=== PATIENT | male | born 1945 | race American Indian/Alaskan Native ===

== ENCOUNTER 2017-11-01 22:37 | Emergency (ER) | payer OTHER, MEDICARE ==
[2017-11-01 23:33] VITALS: BP 143/74
--- NOTE | 2017-11-01 23:48 | Emergency Department Report ---
ED Psych HPI - General Stated Complaint: MH EVAL/COMBATIVE Time Seen by Provider: 11/01/17 23:41 Source: patient, EMS (BROUGTH IN FOR BEING COMBATIVE), RN notes reviewed Limitations: No Limitations - History of Present Illness Initial Comments: 72 YO MALE BROUGHT HER BECAUSE HE IS SAID TO BE COMBATIVE AND HOMICIDAL . PT HAS H/O DM, CVA,APHASIA,SEIZURE. HE HAS BEEN NICE,COOPERATIVE,GENTLE WITHEMS AND THE HOSPITAL STAFF. PT IS APHASIC MD Complaint: other (HAS NO COMPLAINT) - Related Data Home Medications Medication Instructions Recorded Confirmed Last Taken Acetaminophen [Acetaminophen TAB] 650 mg PO BID PRN 07/26/14 10/31/16 Unknown Aspirin [Aspirin BABY CHEW TAB] 81 mg PO DAILY 07/26/14 10/31/16 Unknown Aspirin/Dipyridamole [Aggrenox] 1 cap PO BID 07/26/14 10/31/16 Unknown Cholecalciferol (Vitamin D3) 1,000 unit PO DAILY 07/26/14 10/31/16 Unknown [Vitamin D3] Docusate Sodium [Colace] 100 mg PO BID PRN 07/26/14 10/31/16 Unknown Insulin Aspart Prot/Aspart(Nf) 6 units SUB-Q AC 07/26/14 10/31/16 Unknown [Novolog Mix 70/30] Insulin Detemir [Levemir Flexpen] 43 units SUB-Q HS 07/26/14 10/31/16 Unknown Lisinopril [Zestril] 40 mg PO QDAY 07/26/14 10/31/16 Unknown Metoprolol [Lopressor TAB] 100 mg PO BID 07/26/14 10/31/16 Unknown Omeprazole (Nf) [Prilosec (Nf)] 20 mg PO DAILY 07/26/14 10/31/16 Unknown Simvastatin 40 mg PO QHS 07/26/14 10/31/16 Unknown amLODIPine [Norvasc] 10 mg PO DAILY 07/26/14 10/31/16 Unknown traZODone [Desyrel] 50 mg PO QHS 07/26/14 10/31/16 Unknown DULoxetine [Cymbalta] 30 mg PO QDAY 10/31/16 10/31/16 Unknown QUEtiapine [SEROquel] 12.5 mg PO DAILY 10/31/16 10/31/16 Unknown Allergies Allergy/AdvReac Type Severity Reaction Status Date / Time No Known Allergies Allergy Verified 07/26/14 19:03 ED Review of Systems ROS: Stated complaint: MH EVAL/COMBATIVE Other details as noted in HPI ED Past Medical Hx - Past Medical History Previous Medical History?: Yes Hx CVA: Yes (APHASIA) Hx Diabetes: Yes Hx Psychiatric Treatment: Yes (Depression, dementia) Hx Dementia: Yes Additional medical history: Hyperlipidemia - Surgical History Additional Surgical History: Knee Surgery. Cataract Surgery - Social History Smoking Status: Unknown if ever smoked - Medications Home Medications: Home Medications Medication Instructions Recorded Confirmed Last Taken Type Acetaminophen [Acetaminophen TAB] 650 mg PO BID PRN 07/26/14 10/31/16 Unknown History Aspirin [Aspirin BABY CHEW TAB] 81 mg PO DAILY 07/26/14 10/31/16 Unknown History Aspirin/Dipyridamole [Aggrenox] 1 cap PO BID 07/26/14 10/31/16 Unknown History Cholecalciferol (Vitamin D3) 1,000 unit PO DAILY 07/26/14 10/31/16 Unknown History [Vitamin D3] Docusate Sodium [Colace] 100 mg PO BID PRN 07/26/14 10/31/16 Unknown History Insulin Aspart Prot/Aspart(Nf) 6 units SUB-Q AC 07/26/14 10/31/16 Unknown History [Novolog Mix 70/30] Insulin Detemir [Levemir Flexpen] 43 units SUB-Q HS 07/26/14 10/31/16 Unknown History Lisinopril [Zestril] 40 mg PO QDAY 07/26/14 10/31/16 Unknown History Metoprolol [Lopressor TAB] 100 mg PO BID 07/26/14 10/31/16 Unknown History Omeprazole (Nf) [Prilosec (Nf)] 20 mg PO DAILY 07/26/14 10/31/16 Unknown History Simvastatin 40 mg PO QHS 07/26/14 10/31/16 Unknown History amLODIPine [Norvasc] 10 mg PO DAILY 07/26/14 10/31/16 Unknown History traZODone [Desyrel] 50 mg PO QHS 07/26/14 10/31/16 Unknown History DULoxetine [Cymbalta] 30 mg PO QDAY 10/31/16 10/31/16 Unknown History QUEtiapine [SEROquel] 12.5 mg PO DAILY 10/31/16 10/31/16 Unknown History ED Physical Exam - General Limitations: Language Barrier (APHASIC FROM PRIOR CVA) General appearance: alert, in distress - Head Head exam: Present: atraumatic - Eye Eye exam: Present: normal appearance, EOMI - ENT ENT exam: Present: mucous membranes moist - Neck Neck exam: Present: normal inspection, full ROM - Respiratory Respiratory exam: Present: normal lung sounds bilaterally. Absent: respiratory distress, wheezes, rales - Cardiovascular Cardiovascular Exam: Present: regular rate, normal rhythm. Absent: systolic murmur, diastolic murmur, rubs, gallop - GI/Abdominal GI/Abdominal exam: Present: soft, normal bowel sounds. Absent: distended, tenderness - Rectal Rectal exam: Present: deferred - Extremities Exam Extremities exam: Present: normal inspection, full ROM - Back Exam Back exam: Present: normal inspection, full ROM - Neurological Exam Neurological exam: Present: alert - Psychiatric Psychiatric exam: Present: normal affect, normal mood - Skin Skin exam: Present: warm, dry, intact, normal color. Absent: rash ED Course Vital Signs 11/01/17 23:28 Temperature 98.4 F Pulse Rate 70 Respiratory 18 Rate Blood Pressure 143/74 [Left] O2 Sat by Pulse 98 Oximetry ED Medical Decision Making - Lab Data Result diagrams: 11/01/17 23:58 11/01/17 23:58 Critical care attestation.: If time is entered above; I have spent that time in minutes in the direct care of this critically ill patient, excluding procedure time. ED Disposition Clinical Impression: Hyperglycemia Disposition: DC-01 TO HOME OR SELFCARE Is pt being admited?: No Does the pt Need Aspirin: No Condition: Stable Instructions: Diabetic Hyperglycemia (ED) Additional Instructions: PLESE HAVE HIM FOLLOW UP WITH HIS DOCTOR. WE SEE NO REASON TO KEEP THIS GENTLEMAN. RETURN TO THE ER FOR ANY CONCERNS, OR WORSENING SYMPTOMS Referrals: GILMA CHAN MD [Primary Care Provider] - 3-5 Days Time of Disposition: 02:49
[2017-11-02 00:22] LABS: Basophils # (Auto) 0.1 K/mm3 (0.0-0.1); Basophils % (Auto) 1.1 % (0.0-1.8); Eosinophils # (Auto) 0.4 K/mm3 (0.0-0.4); Eosinophils % (Auto) 4.4 % (0.0-4.3); Hematocrit 42.2 % (35.5-45.6); Hemoglobin 13.4 gm/dl (11.8-15.2); Lymphocytes # (Auto) 1.7 K/mm3 (1.2-5.4); Lymphocytes % (Auto) 16.8 % (13.4-35.0); Mean Corpuscular HGB Conc 32 % (32-34); Mean Corpuscular Hemoglobin 25 pg (28-32); Mean Corpuscular Volume 79 fl (84-94); Monocytes # (Auto) 0.9 K/mm3 (0.0-0.8); Monocytes % (Auto) 8.7 % (0.0-7.3); Platelet Count 284 K/mm3 (140-440); Red Blood Count 5.34 M/mm3 (3.65-5.03); Red Cell Distribution Width 19.9 % (13.2-15.2)
[2017-11-02 00:32] LABS: Bilirubin,Urine NEG (Negative); Blood,Urine SM (Negative); Color,Urine Yellow (Yellow); Nitrite,Urine NEG (Negative); Protein,Urine <15 mg/dL mg/dL (Negative); RBC,Urine < 1.0 /HPF (0.0-6.0); Urobilinogen,Urine < 2.0 mg/dL (<2.0); WBC,Urine < 1.0 /HPF (0.0-6.0)
[2017-11-02 00:42] LABS: BUN/Creatinine Ratio 17; Blood Urea Nitrogen 20 mg/dL (9-20); Calcium 9.8 mg/dL (8.4-10.2); Hemolysis Index 26
[2017-11-02 01:09] LABS: Amphetamine Screen,Urine PRESUMPTIVE NEGATIVE; Benzodiazepines Screen,Urine PRESUMPTIVE NEGATIVE; Cannabinoid Screen,Urine PRESUMPTIVE NEGATIVE; Cocaine Screen,Urine PRESUMPTIVE NEGATIVE; Methadone Screen,Urine PRESUMPTIVE NEGATIVE; Opiate Screen,Urine PRESUMPTIVE NEGATIVE
== END 2017-11-02 05:58 | disposition home or self-care (01) ==
LOC: ED 22:37
DX: R73.9 Hyperglycemia, unspecified (principal); I63.9 Cerebral infarction, unspecified; E11.9 Type 2 diabetes mellitus without complications; F03.90 Unspecified dementia, unspecified severity, without behavioral disturbance, psychotic disturbance, mood disturbance, and anxiety; E78.5 Hyperlipidemia, unspecified; Z79.82 Long term (current) use of aspirin; Z79.4 Long term (current) use of insulin
CPT/HCPCS: 36415; 80048; 80307; 81001; 85025; 99284; G0480; 80320

== ENCOUNTER 2021-05-10 08:25 | Inpatient (IN) | payer OTHER, MEDICARE ==
--- NOTE | 2021-05-10 08:55 | Emergency Department Report ---
HPI - General Chief Complaint: GI Bleed Time Seen by Provider: 05/10/21 08:31 - HPI HPI: This is a 76-year-old -[place] male presents to the emergency department via EMS from his [facility] with a complaint of rectal bleeding with clots that was seen just prior to presentation. Patient has history of hypertension, GERD, previous PE, dementia, high cholesterol, diabetes, CHF, and some CVA with aphasia. Patient is nonverbal and a poor historian. Records have been obtained from his transfer report and previous ER records. ED Past Medical Hx - Past Medical History Hx Hypertension: No Hx CVA: Yes (APHASIA) Hx Heart Attack/AMI: No Hx Congestive Heart Failure: No Hx Diabetes: Yes Hx Deep Vein Thrombosis: No Hx Pulmonary Embolism: No Hx GERD: No Hx Liver Disease: No Hx Renal Disease: No Hx Sickle Cell Disease: No Hx Arthritis: No Hx Headaches / Migraines: No Hx Seizures: No Hx Kidney Stones: No Hx Psychiatric Treatment: Yes (Depression, dementia) Hx Asthma: No Hx COPD: No Hx Tuberculosis: No Hx Dementia: Yes Hx HIV: No Additional medical history: Hyperlipidemia - Surgical History Hx Coronary Stent: No Hx Open Heart Surgery: No Hx Pacemaker: No Hx Internal Defibrillator: No Hx Cholecystectomy: No Hx Appendectomy: No Hx Breast Surgery: No Additional Surgical History: Knee Surgery. Cataract Surgery - Social History Smoking Status: Unknown if ever smoked - Medications Home Medications: Home Medications Medication Instructions Recorded Confirmed Last Taken Type Acetaminophen [Acetaminophen TAB] 650 mg PO BID PRN 07/26/14 10/31/16 Unknown History Aspirin [Aspirin BABY CHEW TAB] 81 mg PO DAILY 07/26/14 10/31/16 Unknown History Aspirin/Dipyridamole [Aggrenox] 1 cap PO BID 07/26/14 10/31/16 Unknown History Cholecalciferol (Vitamin D3) 1,000 unit PO DAILY 07/26/14 10/31/16 Unknown History [Vitamin D3] Docusate Sodium [Colace] 100 mg PO BID PRN 07/26/14 10/31/16 Unknown History Insulin Aspart Prot/Aspart(Nf) 6 units SUB-Q AC 07/26/14 10/31/16 Unknown History [Novolog Mix 70/30] Insulin Detemir [Levemir Flexpen] 43 units SUB-Q HS 07/26/14 10/31/16 Unknown History Metoprolol [Lopressor TAB] 100 mg PO BID 07/26/14 10/31/16 Unknown History Omeprazole (Nf) [Prilosec (Nf)] 20 mg PO DAILY 07/26/14 10/31/16 Unknown History Simvastatin 40 mg PO QHS 07/26/14 10/31/16 Unknown History amLODIPine 10 mg PO DAILY 07/26/14 10/31/16 Unknown History lisinopriL [Zestril] 40 mg PO QDAY 07/26/14 10/31/16 Unknown History traZODone [Desyrel] 50 mg PO QHS 07/26/14 10/31/16 Unknown History DULoxetine [Cymbalta] 30 mg PO QDAY 10/31/16 10/31/16 Unknown History QUEtiapine [SEROquel] 12.5 mg PO DAILY 10/31/16 10/31/16 Unknown History Naproxen [Naprosyn] 500 mg PO BID #14 tablet 11/27/18 Unknown Rx cephALEXin [Keflex] 500 mg PO Q8HR #28 cap 11/27/18 Unknown Rx ED Review of Systems ROS: Stated complaint: RECTAL BLEEDING Other details as noted in HPI Comment: Unobtainable due to pts medical conditions Physical Exam - Physical Exam Physical Exam: GENERAL: The patient is ill-appearing. HENT: Normocephalic. Atraumatic. Patient has moist mucous membranes. EYES: Pupils equal reactive to light bilaterally. NECK: Supple. Trachea is midline. CHEST/LUNGS: Clear to auscultation. There is no respiratory distress noted. HEART/CARDIOVASCULAR: Regular. There is no tachycardia. There is no murmur. ABDOMEN: Abdomen is soft, nontender. Patient has normal bowel sounds. There is no abdominal distention. SKIN: Skin is warm and dry. NEURO: Patient is awake but nonverbal. Follows some commands. Withdraws from painful stimuli. MUSCULOSKELETAL: There is no tenderness or deformity. : There is gross hematochezia. ED Course - Consultations Consultation #1: 05/10/21 11:37 I spoke to the electric welder helper on-call, Dr. Gomez, and they will see the patient as a consult. As the patient just had a CT of the abdomen pelvis with IV contrast, and he is not hemorrhaging, they do not require an RBC tagged scan at this time. ED Medical Decision Making - Lab Data Result diagrams: 05/10/21 11:58 05/10/21 09:03 Lab Results 05/10/21 05/10/21 05/10/21 Range/Units 09:03 09:03 09:03 WBC 20.1 H (4.5-11.0) K/mm3 RBC 6.15 H (3.65-5.03) M/mm3 Hgb 17.4 H (11.8-15.2) gm/dl Hct 51.9 H (35.5-45.6) % MCV 84 (84-94) fl MCH 28 (28-32) pg MCHC 34 (32-34) % RDW 17.9 H (13.2-15.2) % Plt Count 516 H (140-440) K/mm3 Lymph % (Auto) 14.3 (13.4-35.0) % [place] % (Auto) 3.5 (0.0-7.3) % Eos % (Auto) 2.5 (0.0-4.3) % Baso % (Auto) 0.8 (0.0-1.8) % Lymph # (Auto) 2.9 (1.2-5.4) K/mm3 [place] # (Auto) 0.7 (0.0-0.8) K/mm3 Eos # (Auto) 0.5 H (0.0-0.4) K/mm3 Baso # (Auto) 0.2 H (0.0-0.1) K/mm3 Seg Neutrophils % 78.9 H (40.0-70.0) % Seg Neutrophils # 15.9 H (1.8-7.7) K/mm3 PT 19.8 H (12.2-14.9) Sec. INR 1.62 H (0.87-1.13) APTT 40.5 H (24.2-36.6) Sec. Sodium 138 (137-145) mmol/L Potassium 4.6 (3.6-5.0) mmol/L Chloride 102.9 (98-107) mmol/L Carbon Dioxide 25 (22-30) mmol/L Anion Gap 15 mmol/L BUN 62 H (9-20) mg/dL Creatinine 1.4 H (0.8-1.3) mg/dL Estimated GFR 60 ml/min BUN/Creatinine Ratio 44 % Glucose 179 H (75-100) mg/dL Calcium 9.5 (8.4-10.2) mg/dL Total Bilirubin 0.60 (0.1-1.2) mg/dL AST 17 (5-40) units/L ALT 14 (7-56) units/L Alkaline Phosphatase 105 (35-129) units/L Total Protein 7.1 (6.3-8.2) g/dL Albumin 3.1 L (3.9-5) g/dL Albumin/Globulin Ratio 0.8 % 05/10/21 Range/Units 11:58 WBC (4.5-11.0) K/mm3 RBC (3.65-5.03) M/mm3 Hgb 16.7 H (11.8-15.2) gm/dl Hct 53.6 H (35.5-45.6) % MCV (84-94) fl MCH (28-32) pg MCHC (32-34) % RDW (13.2-15.2) % Plt Count (140-440) K/mm3 Lymph % (Auto) (13.4-35.0) % [place] % (Auto) (0.0-7.3) % Eos % (Auto) (0.0-4.3) % Baso % (Auto) (0.0-1.8) % Lymph # (Auto) (1.2-5.4) K/mm3 [place] # (Auto) (0.0-0.8) K/mm3 Eos # (Auto) (0.0-0.4) K/mm3 Baso # (Auto) (0.0-0.1) K/mm3 Seg Neutrophils % (40.0-70.0) % Seg Neutrophils # (1.8-7.7) K/mm3 PT (12.2-14.9) Sec. INR (0.87-1.13) APTT (24.2-36.6) Sec. Sodium (137-145) mmol/L Potassium (3.6-5.0) mmol/L Chloride (98-107) mmol/L Carbon Dioxide (22-30) mmol/L Anion Gap mmol/L BUN (9-20) mg/dL Creatinine (0.8-1.3) mg/dL Estimated GFR ml/min BUN/Creatinine Ratio % Glucose (75-100) mg/dL Calcium (8.4-10.2) mg/dL Total Bilirubin (0.1-1.2) mg/dL AST (5-40) units/L ALT (7-56) units/L Alkaline Phosphatase (35-129) units/L Total Protein (6.3-8.2) g/dL Albumin (3.9-5) g/dL Albumin/Globulin Ratio % - Radiology Data Radiology results: report reviewed, image reviewed interpreted by me: Chest x-ray does not show any acute process. There are no pleural effusions, obvious pneumonia and there is no pneumothorax. No widened mediastinum. Abdominal x-ray shows nonspecific nonobstructive bowel gas. No free air. CT ABDOMEN AND PELVIS WITH CONTRAST HISTORY: Abd pain, rectal bleeding, [id number] 100ml COMPARISON: None. TECHNIQUE: Axial CT images were obtained through the abdomen and pelvis after 100 cc of IV contrast. Sagittal and coronal reformatted images. All CT scans at this location are performed using CT dose reduction for ALARA by means of automated exposure control. FINDINGS: CT ABDOMEN: Lung Bases: Clear. Liver: The liver is normal size and density. A 2 cm hypodensity with rim calcifications is identified in the posterior right hepatic lobe which is of uncertain etiology but a benign etiology is suspected. Biliary: No significant abnormality. Spleen: No significant abnormality. Unenlarged. Pancreas: No significant abnormality. Adrenals: No significant abnormality. Kidneys: No significant abnormality. Lymphatics: No lymphadenopathy. Vasculature: Moderate diffuse calcific plaques are noted throughout the abdominal aorta and iliac ar teries. No aneurysm or high-grade stenosis is detected. Bowel/Peritoneum: There is no evidence for bowel obstruction or focal inflammation. No obvious GI mass. The rectum is grossly unremarkable. Normal appendix. No evidence for free fluid, free air or fluid collection. CT PELVIS: : No significant abnormality. Osseous Structures: Mild to moderate lumbar spondylosis. No fracture or suspicious bony lesion. Additional Findings: None IMPRESSION: No acute process is appreciated. No clear explanation for rectal bleeding on CTA. - Medical Decision Making This patient presented to the emergency department from his [facility] after they saw that he had rectal bleeding starting this morning. On examination the patient does have gross hematochezia. Otherwise the patient does not have any complaints and is nonverbal secondary to a history of CVA with aphasia. The abdomen is soft, nondistended. Patient's labs came back showing a leukocytosis of 20,000. The patient has a hemoglobin of 17.6. There are elevated PT, PTT and INR coags. The patient also has an elevated BUN of about 60. I later found out that the patient is on Eliquis. He also appears to be on Aggrenox. GI was contacted and consulted. Patient was accepted for admission by the hospitalist, Dr. Rodgers. Critical Care Time: No Critical care attestation.: If time is entered above; I have spent that time in minutes in the direct care of this critically ill patient, excluding procedure time. ED Disposition Clinical Impression: Anticoagulated GI bleeding Qualifiers: GI bleed type/associated pathology: unspecified gastrointestinal hemorrhage ty pe Qualified Code(s): K92.2 - Gastrointestinal hemorrhage, unspecified Leukocytosis Qualifiers: Leukocytosis type: unspecified Qualified Code(s): D72.829 - Elevated white blood cell count, unspecified Disposition: DC-09 OP ADMIT IP TO THIS HOSP Is pt being admited?: Yes Condition: Serious Time of Disposition: 14:10
--- NOTE | 2021-05-10 09:25 | XRay Report ---
ABDOMEN SERIES WITH ONE VIEW CHEST INDICATION / CLINICAL INFORMATION: Abd pain. COMPARISON: None available. FINDINGS: TUBES / LINES: None. BOWEL GAS PATTERN: No significant abnormality. FREE AIR / EXTRALUMINAL GAS: None seen. ADDITIONAL FINDINGS: No significant additional findings. LUNGS: Visualized lungs show no significant abnormality. IMPRESSION: 1. No significant abnormality. Signer Name: Dalton Horowitz MD Signed: 05/10/2021 9:20 AM Workstation Name: [id number]
[2021-05-10 09:28] LABS: Basophils # (Auto) 0.2 K/mm3 (0.0-0.1); Basophils % (Auto) 0.8 % (0.0-1.8); Eosinophils # (Auto) 0.5 K/mm3 (0.0-0.4); Eosinophils % (Auto) 2.5 % (0.0-4.3); Hematocrit 51.9 % (35.5-45.6); Hemoglobin 17.4 gm/dl (11.8-15.2); Lymphocytes # (Auto) 2.9 K/mm3 (1.2-5.4); Lymphocytes % (Auto) 14.3 % (13.4-35.0); Mean Corpuscular HGB Conc 34 % (32-34); Mean Corpuscular Volume 84 fl (84-94); Monocytes # (Auto) 0.7 K/mm3 (0.0-0.8); Monocytes % (Auto) 3.5 % (0.0-7.3); Red Blood Count 6.15 M/mm3 (3.65-5.03); Red Cell Distribution Width 17.9 % (13.2-15.2)
[2021-05-10 09:39] LABS: INR 1.62 (0.87-1.13)
[2021-05-10 09:40] LABS: Partial Thromboplastin Time 40.5 Sec. (24.2-36.6)
[2021-05-10 09:42] LABS: Albumin 3.1 g/dL (3.9-5); Calcium 9.5 mg/dL (8.4-10.2)
[2021-05-10 10:10] LABS: Platelet Count 516 K/mm3 (140-440)
--- NOTE | 2021-05-10 11:08 | Cat Scan Report ---
CT ABDOMEN AND PELVIS WITH CONTRAST HISTORY: Abd pain, rectal bleeding, [id number] 100ml COMPARISON: None. TECHNIQUE: Axial CT images were obtained through the abdomen and pelvis after 100 cc of IV contrast. Sagittal and coronal reformatted images. All CT scans at this location are performed using CT dose re duction for ALARA by means of automated exposure control. FINDINGS: CT ABDOMEN: Lung Bases: Clear. Liver: The liver is normal size and density. A 2 cm hypodensity with rim calcifications is identified in the posterior right hepatic lobe which is of uncertain etiology but a benign etiology is suspecte d. Biliary: No significant abnormality. Spleen: No significant abnormality. Unenlarged. Pancreas: No significant abnormality. Adrenals: No significant abnormality. Kidneys: No significant abnormality. Lymphatics: No lymphadenopathy. Vasculature: Moderate diffuse calcific plaques are noted throughout the abdominal aorta and iliac art eries. No aneurysm or high-grade stenosis is detected. Bowel/Peritoneum: There is no evidence for bowel obstruction or focal inflammation. No obvious GI mas s. The rectum is grossly unremarkable. Normal appendix. No evidence for free fluid, free air or fluid collection. CT PELVIS: : No significant abnormality. Osseous Structures: Mild to moderate lumbar spondylosis. No fracture or suspicious bony lesion. Additional Findings: None IMPRESSION: No acute process is appreciated. No clear explanation for rectal bleeding on CTA. Signer Name: Howard Rashid Jr, MD Signed: 05/10/2021 11:04 AM Workstation Name: [id number]
--- NOTE | 2021-05-10 11:51 | History and Physical Report ---
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 Patient has diminished cognition and is unable to provide detailed history. Patient history taken from EMS staff, ED staff, as well as senior care facility staff. As per staff the patient was found to have rectal bleeding today. EMS notified and upon arrival the patient was found to be in distress and subsequently transported to [facility] for further care and evaluation of the aforementioned symptoms. Patient found to have heme positive stool with clinical findings consistent with lower GI bleed suspected secondary to therapeutic anticoagulation with concomitant antiplatelet therapy. Patient admitted to telemetry and initiated on GI bleed protocol. Patient treated with discontinuation of dual antiplatelet therapy as well as therapeutic anticoagulation. No transfusion indicated at this time. No reports of fever, chills, chest pain, palpitation, productive cough, skin rash, recent ill contacts, known exposure to COVID-19, unilateral leg swelling, calf pain, individual/family history of bleeding or blood clotting disorders. No pr ior admission for review. All medication listed at time of admission has been reconciled. Advanced care planning conducted in ED. Past History Past Medical History: diabetes, GERD, hypertension, hyperlipidemia, other (See HPI) Past Surgical History: cataract removal, total knee replacement Social history: . denies: smoking, alcohol abuse, prescription drug abuse Family history: diabetes, hypertension Medications and Allergies Allergies Allergy/AdvReac Type Severity Reaction Status Date / Time No Known Allergies Allergy Verified 07/26/14 19:03 Home Medications Medication Instructions Recorded Confirmed Last Taken Type Acetaminophen [Acetaminophen TAB] 650 mg PO BID PRN 07/26/14 10/31/16 Unknown History Aspirin [Aspirin BABY CHEW TAB] 81 mg PO DAILY 07/26/14 10/31/16 Unknown History Aspirin/Dipyridamole [Aggrenox] 1 cap PO BID 07/26/14 10/31/16 Unknown History Cholecalciferol (Vitamin D3) 1,000 unit PO DAILY 07/26/14 10/31/16 Unknown History [Vitamin D3] Docusate Sodium [Colace] 100 mg PO BID PRN 07/26/14 10/31/16 Unknown History Insulin Aspart Prot/Aspart(Nf) 6 units SUB-Q AC 07/26/14 10/31/16 Unknown History [Novolog Mix 70/30] Insulin Detemir [Levemir Flexpen] 43 units SUB-Q HS 07/26/14 10/31/16 Unknown History Metoprolol [Lopressor TAB] 100 mg PO BID 07/26/14 10/31/16 Unknown History Omeprazole (Nf) [Prilosec (Nf)] 20 mg PO DAILY 07/26/14 10/31/16 Unknown History Simvastatin 40 mg PO QHS 07/26/14 10/31/16 Unknown History amLODIPine 10 mg PO DAILY 07/26/14 10/31/16 Unknown History lisinopriL [Zestril] 40 mg PO QDAY 07/26/14 10/31/16 Unknown History traZODone [Desyrel] 50 mg PO QHS 07/26/14 10/31/16 Unknown History DULoxetine [Cymbalta] 30 mg PO QDAY 10/31/16 10/31/16 Unknown History QUEtiapine [SEROquel] 12.5 mg PO DAILY 10/31/16 10/31/16 Unknown History Naproxen [Naprosyn] 500 mg PO BID #14 tablet 11/27/18 Unknown Rx cephALEXin [Keflex] 500 mg PO Q8HR #28 cap 11/27/18 Unknown Rx Review of Systems ROS unobtainable: due to mental status Exam - Constitutional Vitals: Temp Pulse Resp BP Pulse Ox 98.3 F 67 14 91/57 91 05/10/21 08:38 05/10/21 10:00 05/10/21 10:00 05/10/21 10:00 05/10/21 10:00 General appearance: Present: mild distress - EENT Eyes: Present: PERRL ENT: hearing intact, clear oral mucosa - Neck Neck: Present: supple, normal ROM - Respiratory Respiratory effort: normal Respiratory: bilateral: CTA - Cardiovascular Heart Sounds: Present: S1 & S2. Absent: rub, click - Extremities Extremities: pulses symmetrical, No edema Peripheral Pulses: within normal limits - Abdominal General gastrointestinal: Present: soft, non-tender, non-distended, normal bowel sounds Male genitourinary: Present: normal - Rectal Rectal Exam: other (Hemoccult positive, no stool in the rectal vault) - Integumentary Integumentary: Present: clear, warm, dry - Musculoskeletal Musculoskeletal: gait normal, strength equal bilaterally - Psychiatric Psychiatric: appropriate mood/affect, intact judgment & insight - Neurologic Neurologic: CNII-XII intact, moves all extremities Results - Labs CBC & Chem 7: 05/10/21 11:58 05/10/21 09:03 Labs: Abnormal lab results 05/10/21 05/10/21 05/10/21 Range/Units 09:03 09:03 09:03 WBC 20.1 H (4.5-11.0) K/mm3 RBC 6.15 H (3.65-5.03) M/mm3 Hgb 17.4 H (11.8-15.2) gm/dl Hct 51.9 H (35.5-45.6) % RDW 17.9 H (13.2-15.2) % Plt Count 516 H (140-440) K/mm3 Eos # (Auto) 0.5 H (0.0-0.4) K/mm3 Baso # (Auto) 0.2 H (0.0-0.1) K/mm3 Seg Neutrophils % 78.9 H (40.0-70.0) % Seg Neutrophils # 15.9 H (1.8-7.7) K/mm3 PT 19.8 H (12.2-14.9) Sec. INR 1.62 H (0.87-1.13) APTT 40.5 H (24.2-36.6) Sec. BUN 62 H (9-20) mg/dL Creatinine 1.4 H (0.8-1.3) mg/dL Glucose 179 H (75-100) mg/dL Albumin 3.1 L (3.9-5) g/dL Assessment and Plan - Patient Problems (1) GI bleeding Current Visit: Yes Status: Acute Qualifiers: GI bleed type/associated pathology: unspecified gastrointestinal hemorrhage type Qualified Code(s): K92.2 - Gastrointestinal hemorrhage, unspecified Plan to address problem: GIB protocol: Admit to telemetry, PPI therapy, hold therapeutic anticoagulation, hold antiplatelet therapy, no transfusion at this time. (2) Acute kidney injury (MELISSA) with acute tubular necrosis (ATN) Current Visit: Yes Status: Acute Plan to address problem: IV fluid resuscitation therapy as clinically indicated, encourage free water intake, supportive care. Repeat BMP in a.m. (3) History of pulmonary embolism Current Visit: Yes Status: Acute Plan to address problem: Hold therapeutic anticoagulation now due to GI bleed (4) History of CVA (cerebrovascular accident) Current Visit: Yes Status: Acute Plan to address problem: Hold antiplatelet therapy at this time due to GI bleed. (5) Hypertension Current Visit: Yes Status: Acute Qualifiers: Hypertension type: primary hypertension Qualified Code(s): I10 - Essential (primary) hypertension Plan to address problem: Monitor blood pressure every shift, continue medical management (6) GERD (gastroesophageal reflux disease) Current Visit: Yes Status: Acute Qualifiers: Esophagitis presence: without esophagitis Qualified Code(s): K21.9 - Gastro-esophageal reflux disease without esophagitis Plan to address problem: PPI therapy, supportive care (7) DVT prophylaxis Current Visit: Yes Status: Acute Plan to address problem: SCDs bilateral lower extremities while in bed, hold anticoagulation due to active GI bleed (8) Advance care planning Current Visit: Yes Status: Acute Plan to address problem: Disease education conducted, care plan discussed, diagnosis discussed, prognosis discussed, +30 minutes. Patient is full code.
[2021-05-10] MEDS ORDERED: ACETAMINOPHEN 325 MG TAB PO PRN ×2 (12:07→13:00)
[2021-05-10] MEDS ORDERED: SODIUM CHLORIDE 0.9% 1000 ML 1,000 ML ONE (12:14)
[2021-05-10 12:26] LABS: Hematocrit 53.6 % (35.5-45.6); Hemoglobin 16.7 gm/dl (11.8-15.2)
[2021-05-10] MEDS ORDERED: SODIUM CHLORIDE 0.9% 1000 ML 1,000 ML IV ONE (12:42)
[2021-05-10] MEDS ORDERED: MORPHINE 4 MG/1 ML INJ IV PRN (13:00)
[2021-05-10] MEDS ORDERED: ONDANSETRON 4 MG/2 ML INJ IV PRN (13:00)
[2021-05-10] MEDS ORDERED: oxyCODONE /ACETAMINOPHEN 5-325MG TAB PO PRN (13:00)
[2021-05-10] MEDS ORDERED: ALBUTEROL 2.5 MG/3 ML NEBU IH PRN (13:00)
[2021-05-10] MEDS ORDERED: DOCUSATE SODIUM 100 MG CAP PO PRN (13:00)
[2021-05-10] MEDS: METOPROLOL TARTRATE 100 MG TAB PO SCH ×2 (13:45→23:08)
[2021-05-10] MEDS: NAPROXEN 500 MG TAB PO SCH ×2 (13:47→23:21)
[2021-05-10] MEDS: cefTRIAXone/NS 1 GM/50 ML 1 GM/50 ML BAG IV SCH (14:04)
[2021-05-10] MEDS: PANTOPRAZOLE 40 MG INJ IV SCH ×2 (14:07→23:22)
[2021-05-10] MEDS ORDERED: SODIUM CHLORIDE 0.9% 500 ML 500 ML IV NR (16:42)
[2021-05-10] MEDS ORDERED: METOPROLOL TARTRATE 25 MG TAB PO SCH (22:00)
[2021-05-10] MEDS ORDERED: NON-FORMULARY EACH (Simvastatin [Simvastatin] 20 MG Tablet) PO SCH (22:00)
[2021-05-10] MEDS: traZODone 50 MG TAB PO SCH (23:21)
[2021-05-10] MEDS: PRAVASTATIN 80 MG TAB PO SCH (23:21)
[2021-05-11 06:33] LABS: Basophils # (Auto) 0.2 K/mm3 (0.0-0.1); Basophils % (Auto) 1.1 % (0.0-1.8); Eosinophils # (Auto) 0.5 K/mm3 (0.0-0.4); Eosinophils % (Auto) 2.7 % (0.0-4.3); Hematocrit 44.1 % (35.5-45.6); Hemoglobin 13.7 gm/dl (11.8-15.2); Lymphocytes # (Auto) 2.8 K/mm3 (1.2-5.4); Lymphocytes % (Auto) 15.5 % (13.4-35.0); Mean Corpuscular HGB Conc 31 % (32-34); Mean Corpuscular Volume 86 fl (84-94); Monocytes # (Auto) 0.8 K/mm3 (0.0-0.8); Monocytes % (Auto) 4.4 % (0.0-7.3); Platelet Count 388 K/mm3 (140-440); Red Blood Count 5.16 M/mm3 (3.65-5.03); Red Cell Distribution Width 17.5 % (13.2-15.2)
[2021-05-11 06:49] LABS: BUN/Creatinine Ratio 45; Blood Urea Nitrogen 59 mg/dL (9-20); Calcium 8.3 mg/dL (8.4-10.2); Hemolysis Index 104
--- NOTE | 2021-05-11 09:35 | Progress Note ---
Assessment and Plan Assessment and plan: GI bleed Acute kidney injury/ATN History of pulmonary embolism History of CVA Hypertension GERD 05/11/2021. Continue Protonix 40 mg IV twice daily. Discontinue naproxen. Await GI consultation. Continue to monitor serial H&H which currently stable. Continue IV fluid hydration. Creatinine has improved. History Interval history: No new issues overnight. Hospitalist Physical - Constitutional Vitals: Temp Pulse Resp BP Pulse Ox 97.2 F L 48 L 20 81/36 92 05/11/21 08:41 05/11/21 08:41 05/11/21 08:41 05/11/21 08:41 05/11/21 09:29 General appearance: Present: mild distress - EENT Eyes: Present: PERRL, EOM intact ENT: hearing intact, clear oral mucosa, dentition normal - Neck Neck: Present: supple, normal ROM - Respiratory Respiratory effort: normal Respiratory: bilateral: CTA - Cardiovascular Rhythm: regular Heart Sounds: Present: S1 & S2. Absent: gallop, rub - Extremities Extremities: no ischemia, No edema, Full ROM - Abdominal General gastrointestinal: soft, non-tender, non-distended, normal bowel sounds - Integumentary Integumentary: Present: clear, warm, dry - Neurologic Neurologic: CNII-XII intact, moves all extremities Results - Labs CBC & Chem 7: 05/11/21 05:02 05/11/21 05:02 Labs: Laboratory Last Values WBC 18.0 K/mm3 (4.5-11.0) H 05/11/21 05:02 RBC 5.16 M/mm3 (3.65-5.03) H 05/11/21 05:02 Hgb 13.7 gm/dl (11.8-15.2) D 05/11/21 05:02 Hct 44.1 % (35.5-45.6) D 05/11/21 05:02 MCV 86 fl (84-94) 05/11/21 05:02 MCH 27 pg (28-32) L 05/11/21 05:02 MCHC 31 % (32-34) L 05/11/21 05:02 RDW 17.5 % (13.2-15.2) H 05/11/21 05:02 Plt Count 388 K/mm3 (140-440) 05/11/21 05:02 Lymph % (Auto) 15.5 % (13.4-35.0) 05/11/21 05:02 [place] % (Auto) 4.4 % (0.0-7.3) 05/11/21 05:02 Eos % (Auto) 2.7 % (0.0-4.3) 05/11/21 05:02 Baso % (Auto) 1.1 % (0.0-1.8) 05/11/21 05:02 Lymph # (Auto) 2.8 K/mm3 (1.2-5.4) 05/11/21 05:02 [place] # (Auto) 0.8 K/mm3 (0.0-0.8) 05/11/21 05:02 Eos # (Auto) 0.5 K/mm3 (0.0-0.4) H 05/11/21 05:02 Baso # (Auto) 0.2 K/mm3 (0.0-0.1) H 05/11/21 05:02 Seg Neutrophils % 76.3 % (40.0-70.0) H 05/11/21 05:02 Seg Neutrophils # 13.7 K/mm3 (1.8-7.7) H 05/11/21 05:02 PT 19.8 Sec. (12.2-14.9) H 05/10/21 09:03 INR 1.62 (0.87-1.13) H 05/10/21 09:03 APTT 40.5 Sec. (24.2-36.6) H 05/10/21 09:03 Sodium 136 mmol/L (137-145) L 05/11/21 05:02 Potassium 4.9 mmol/L (3.6-5.0) 05/11/21 05:02 Chloride 101.9 mmol/L (98-107) 05/11/21 05:02 Carbon Dioxide 22 mmol/L (22-30) 05/11/21 05:02 Anion Gap 17 mmol/L 05/11/21 05:02 BUN 59 mg/dL (9-20) H 05/11/21 05:02 Creatinine 1.3 mg/dL (0.8-1.3) 05/11/21 05:02 Estimated GFR > 60 ml/min 05/11/21 05:02 BUN/Creatinine Ratio 45 % 05/11/21 05:02 Glucose 130 mg/dL (75-100) H 05/11/21 05:02 Calcium 8.3 mg/dL (8.4-10.2) L 05/11/21 05:02 Total Bilirubin 0.60 mg/dL (0.1-1.2) 05/10/21 09:03 AST 17 units/L (5-40) 05/10/21 09:03 ALT 14 units/L (7-56) 05/10/21 09:03 Alkaline Phosphatase 105 units/L (35-129) 05/10/21 09:03 Total Protein 7.1 g/dL (6.3-8.2) 05/10/21 09:03 Albumin 3.1 g/dL (3.9-5) L 05/10/21 09:03 Albumin/Globulin Ratio 0.8 % 05/10/21 09:03 Lewis/IV: Voiding Method Condom Catheter Active Medications - Current Medications Current Medications: Generic Name Dose Route Start Last Admin Trade Name Freq PRN Reason Stop Dose Admin Acetaminophen 650 mg 05/10/21 13:00 Acetaminophen 325 Mg Tab PO Q4H PRN Pain MILD(1-3)/Fever >100.5/VASQUEZ Albuterol 2.5 mg 05/10/21 13:00 Albuterol 2.5 Mg/3 Ml Nebu IH Q4HRT PRN Shortness Of Breath Amlodipine Besylate 10 mg 05/11/21 10:00 Amlodipine 10 Mg Tab PO DAILY [facility] Docusate Sodium 100 mg 05/10/21 13:00 Docusate Sodium 100 Mg Cap PO BID PRN Constipation Duloxetine HCl 30 mg 05/11/21 10:00 Duloxetine 30 Mg Cap PO QDAY [facility] Ceftriaxone Sodium 1 gm in 50 mls @ 100 mls/hr 05/10/21 13:00 05/10/21 14:04 Rocephin/Ns 1 Gm/50 Ml IV 100 mls/hr Q24HR ALMAZ Administration Protocol Lisinopril 40 mg 05/11/21 13:00 Lisinopril 40 Mg Tab PO QDAY [facility] Metoprolol Tartrate 100 mg 05/10/21 13:00 05/10/21 23:08 Metoprolol Tartrate 100 Mg Tab PO Not Given BID [facility] Morphine Sulfate 1 mg 05/10/21 13:00 Morphine 4 Mg/1 Ml Inj IV Q8H PRN Pain , Severe (7-10) Naproxen 500 mg 05/10/21 13:00 05/10/21 23:21 Naproxen 500 Mg Tab PO 500 mg BID ALMAZ Administration Ondansetron HCl 4 mg 05/10/21 13:00 Ondansetron 4 Mg/2 Ml Inj IV Q8H PRN Nausea And Vomiting Oxycodone/Acetaminophen 1 tab 05/10/21 13:00 Oxycodone /Acetaminophen 5-325mg Tab PO Q6H PRN Pain, Moderate (4-6) Pantoprazole Sodium 40 mg 05/10/21 14:00 05/10/21 23:22 Pantoprazole 40 Mg Inj IV 40 mg BID ALMAZ Administration Pravastatin Sodium 80 mg 05/10/21 22:00 05/10/21 23:21 Pravastatin 80 Mg Tab PO 80 mg QHS ALMAZ Administration Quetiapine Fumarate 12.5 mg 05/11/21 13:00 Quetiapine 25 Mg Tab PO DAILY ALMAZ Sodium Chloride 10 ml 05/10/21 13:00 05/10/21 23:22 Sodium Chloride 0.9% 10 Ml Flush Syringe IV 10 ml BID ALMAZ Administration Sodium Chloride 10 ml 05/10/21 13:00 Sodium Chloride 0.9% 10 Ml Flush Syringe IV PRN PRN LINE FLUSH Trazodone HCl 50 mg 05/10/21 22:00 05/10/21 23:21 Trazodone 50 Mg Tab PO 50 mg QHS ALMAZ Administration
[2021-05-11] MEDS: cefTRIAXone/NS 1 GM/50 ML 1 GM/50 ML BAG IV SCH (13:36)
[2021-05-11] MEDS: DULoxetine 30 MG CAP PO SCH (13:42)
[2021-05-11] MEDS: METOPROLOL TARTRATE 100 MG TAB PO SCH ×2 (13:42→22:27)
[2021-05-11] MEDS: amLODIPine 10 MG TAB PO SCH (13:43)
[2021-05-11] MEDS: PANTOPRAZOLE 40 MG INJ IV SCH ×2 (13:44→22:28)
[2021-05-11] MEDS: QUEtiapine 25 MG TAB PO SCH (13:56)
[2021-05-11] MEDS: LISINOPRIL 40 MG TAB PO SCH ×2 (13:56→13:57)
[2021-05-11] MEDS: traZODone 50 MG TAB PO SCH (22:27)
[2021-05-11] MEDS: PRAVASTATIN 80 MG TAB PO SCH (22:27)
[2021-05-11 23:20] LABS: Bacteria,Urine 1+ /HPF (Negative); Bilirubin,Urine NEG (Negative); Blood,Urine SM (Negative); Color,Urine Yellow (Yellow); Hyaline Casts,Urine 1 /LPF; Protein,Urine <15 mg/dL mg/dL (Negative); Urobilinogen,Urine < 2.0 mg/dL (<2.0)
[2021-05-12 05:16] LABS: Hemoglobin 13.6 gm/dl (11.8-15.2); Mean Corpuscular Volume 85 fl (84-94); Red Blood Count 4.97 M/mm3 (3.65-5.03)
[2021-05-12 05:17] LABS: Basophils # (Auto) 0.1 K/mm3 (0.0-0.1); Basophils % (Auto) 0.7 % (0.0-1.8); Eosinophils # (Auto) 0.4 K/mm3 (0.0-0.4); Eosinophils % (Auto) 3.1 % (0.0-4.3); Lymphocytes # (Auto) 1.7 K/mm3 (1.2-5.4); Lymphocytes % (Auto) 12.2 % (13.4-35.0); Mean Corpuscular HGB Conc 33 % (32-34); Monocytes # (Auto) 0.7 K/mm3 (0.0-0.8); Monocytes % (Auto) 4.7 % (0.0-7.3); Platelet Count 406 K/mm3 (140-440); Red Cell Distribution Width 17.4 % (13.2-15.2)
[2021-05-12 05:19] LABS: BUN/Creatinine Ratio 40; Blood Urea Nitrogen 48 mg/dL (9-20); Calcium 8.6 mg/dL (8.4-10.2); Hemolysis Index 26
--- NOTE | 2021-05-12 07:50 | Discharge Summary ---
Providers - Providers Date of Admission: 05/10/21 12:01 Date of discharge: 05/12/21 Attending physician: JOHANN CALHOUN 05/11/21 07:28 Consult to Physician [CONS] Routine Comment: Consulting Provider: KASHMIR PARIKH Physician Instructions: Reason For Exam: GIB 05/11/21 19:55 Consult to Wound/ET Nurse [CONS] Urgent Reason For Exam: wound eval Primary care physician: BAKER PASTRY Hospitalization Reason for admission: anemia, rectal bleeding Condition: Serious Hospital course: 76 YO Male Usp Facility Resident at 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 Patient has diminished cognition and was unable to provide detailed history. Patient history taken from EMS staff, ED staff, as well as detention facility staff. As per staff the patient was found to have rectal bleeding on the day of admission. EMS notified and upon arrival the patient was found to be in distress and subsequently transported to [facility] for further care and evaluation of the aforementioned symptoms. Patient found to have heme positive stool with clinical findings consistent with lower GI bleed suspected secondary to therapeutic anticoagulation with concomitant antiplatelet therapy. Patient admitted to telemetry and initiated on GI bleed protocol. Patient treated with discontinuation of dual antiplatelet therapy as well as therapeutic anticoagulation. No transfusion indicated at this time. Patient with admission diagnosis of GI bleed. Patient was also admitted with acute kidney injury secondary to vasomotor nephropathy and possibly ATN from sepsis. The patient was noted also to have leukocytosis on admission but no urinalysis was obtained until day 2 of the hospital stay. Urinalysis revealed UTI with 55 WBCs. Therefore, patient also had a diagnosis of sepsis and UTI present on admission. Patient meets criteria for sepsis given the altered mentation, leukocytosis and diagnosis of UTI. Dr. Rodgers and myself had a discussion with GI who reported that patient should be monitored and if no significant change in H&H can be discharged. GI reported having no plans to perform endoscopy given patient's overall poor clinical status with vascular dementia, CVA complicated with aphasia, adult failure to thrive and history of hospice. GI also recommended discontinuing anticoagulation which was completed. I also discussed the case with the who was in agreement with discharging the patient back to nursing facility under hospice if H&H remained stable. Patient had no further active bleeding H&H remained stable. Anticoagulation will be discontinued and patient will be transferred back to nursing facility. Patient was treated with IV antibiotics of Rocephin and will be continued on p.o. antibiotics at discharge. Dedicated discharge time 35 minutes. 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, Cerebral Atherosclerosis, HTN, GERD, DM, HLD, CHF, Vascular Dementia, Depression, PE Core Measure Documentation - Palliative Care Palliative Care/ Comfort Measures: Not Applicable - Core Measures Any of the following diagnoses?: none Exam - Constitutional Vitals: Temp Pulse Resp BP Pulse Ox 97.5 F L 56 L 12 115/55 94 05/12/21 07:34 05/12/21 07:34 05/12/21 07:34 05/12/21 07:34 05/12/21 07:34 General appearance: Present: no acute distress, well-nourished - EENT Eyes: Present: PERRL ENT: hearing intact, clear oral mucosa - Neck Neck: Present: supple, normal ROM - Respiratory Respiratory effort: normal Respiratory: bilateral: CTA - Cardiovascular Heart Sounds: Present: S1 & S2. Absent: rub, click - Extremities Extremities: pulses symmetrical, No edema Peripheral Pulses: within normal limits - Abdominal General gastrointestinal: Present: soft, non-tender, non-distended, normal bowel sounds Male genitourinary: Present: normal - Integumentary Integumentary: Present: clear, warm, dry - Musculoskeletal Musculoskeletal: gait normal, strength equal bilaterally - Psychiatric Psychiatric: appropriate mood/affect, intact judgment & insight - Neurologic Neurologic: moves all extremities, other (Confused) Plan Activity: advance as tolerated Weight Bearing Status: Weight Bear as Tolerated Diet: regular Follow up with: PRIMARY CARE,MD [Primary Care Provider] - 3-5 Days Forms: Accompanied Note
[2021-05-12] MEDS ORDERED: PANTOPRAZOLE 40 MG TAB PO SCH (09:00)
[2021-05-12] MEDS ORDERED: levoFLOXacin 500 MG TAB PO SCH (10:00)
[2021-05-12] MEDS: LISINOPRIL 40 MG TAB PO SCH (10:12)
[2021-05-12] MEDS: amLODIPine 10 MG TAB PO SCH (10:12)
[2021-05-12] MEDS: METOPROLOL TARTRATE 100 MG TAB PO SCH (10:12)
[2021-05-12] MEDS: DULoxetine 30 MG CAP PO SCH (10:12)
[2021-05-12] MEDS: QUEtiapine 25 MG TAB PO SCH (10:13)
--- NOTE | 2021-05-12 12:13 | Consultation ---
History of Present Illness - Reason for Consult Consult date: 05/12/21 GI bleed Requesting physician: JOHANN CALHOUN - History of Present Illness Mr. Andino is a 76-year-old [facility] resident on whom I am consulted for GI bleed. He is on DAPT for heart disease, and was in hospice for cardiac reasons per reported discussion by hospitalists with his . He was brought to the emergency room because of bright red blood per rectum. Here, he has had no further bleeding. His hemoglobin went from 16-13. No reported GI distress. Medications reviewed. Past History Past Medical History: diabetes, GERD, hypertension, hyperlipidemia, other (See HPI) Past Surgical History: cataract removal, total knee replacement Social history: . denies: smoking, alcohol abuse, prescription drug abuse Family history: diabetes, hypertension Medications and Allergies Allergies Allergy/AdvReac Type Severity Reaction Status Date / Time No Known Allergies Allergy Verified 07/26/14 19:03 Home Medications Medication Instructions Recorded Confirmed Last Taken Type Acetaminophen [Acetaminophen TAB] 650 mg PO BID PRN 07/26/14 10/31/16 Unknown History Cholecalciferol (Vitamin D3) 1,000 unit PO DAILY 07/26/14 10/31/16 Unknown History [Vitamin D3] Docusate Sodium [Colace CAP] 100 mg PO BID PRN 07/26/14 10/31/16 Unknown History Insulin Aspart Prot/Aspart(Nf) 6 units SUB-Q AC 07/26/14 10/31/16 Unknown History [NovoLOG Mix 70/30 VIAL] Insulin Detemir [Levemir Flexpen] 43 units SUB-Q HS 07/26/14 10/31/16 Unknown History Metoprolol [Lopressor TAB] 100 mg PO BID 07/26/14 10/31/16 Unknown History Simvastatin 40 mg PO QHS 07/26/14 10/31/16 Unknown History amLODIPine 10 mg PO DAILY 07/26/14 10/31/16 Unknown History lisinopriL [Zestril TAB] 40 mg PO QDAY 07/26/14 10/31/16 Unknown History traZODone [Desyrel] 50 mg PO QHS 07/26/14 10/31/16 Unknown History DULoxetine [Cymbalta] 30 mg PO QDAY 10/31/16 10/31/16 Unknown History QUEtiapine [SEROquel] 12.5 mg PO DAILY 10/31/16 10/31/16 Unknown History Metoprolol [Lopressor TAB] 100 mg PO BID tablet 05/12/21 Unknown Rx Pantoprazole [Protonix TAB] 40 mg PO BIDAC #60 tablet 05/12/21 Unknown Rx levoFLOXacin [Levaquin TAB] 500 mg PO Q24HR #7 tablet 05/12/21 Unknown Rx Active Meds: Active Medications Acetaminophen (Acetaminophen 325 Mg Tab) 650 mg PO Q4H PRN PRN Reason: Pain MILD(1-3)/Fever >100.5/VASQUEZ Albuterol (Albuterol 2.5 Mg/3 Ml Nebu) 2.5 mg IH Q4HRT PRN PRN Reason: Shortness Of Breath Amlodipine Besylate (Amlodipine 10 Mg Tab) 10 mg PO DAILY [facility] Last Admin: 05/12/21 10:12 Dose: 10 mg Documented by: Docusate Sodium (Docusate Sodium 100 Mg Cap) 100 mg PO BID PRN PRN Reason: Constipation Duloxetine HCl (Duloxetine 30 Mg Cap) 30 mg PO QDAY [facility] Last Admin: 05/12/21 10:12 Dose: 30 mg Documented by: Levofloxacin (Levofloxacin 500 Mg Tab) 500 mg PO Q24HR [facility]; Protocol Stop: 05/18/21 10:01 Last Admin: 05/12/21 10:13 Dose: 500 mg Documented by: Lisinopril (Lisinopril 40 Mg Tab) 40 mg PO QDAY [facility] Last Admin: 05/12/21 10:12 Dose: 40 mg Documented by: Metoprolol Tartrate (Metoprolol Tartrate 100 Mg Tab) 100 mg PO BID [facility] Last Admin: 05/12/21 10:12 Dose: 100 mg Documented by: Morphine Sulfate (Morphine 4 Mg/1 Ml Inj) 1 mg IV Q8H PRN PRN Reason: Pain , Severe (7-10) Ondansetron HCl (Ondansetron 4 Mg/2 Ml Inj) 4 mg IV Q8H PRN PRN Reason: Nausea And Vomiting Oxycodone/Acetaminophen (Oxycodone /Acetaminophen 5-325mg Tab) 1 tab PO Q6H PRN PRN Reason: Pain, Moderate (4-6) Pantoprazole S[facility] Mg [facility] Admin: 05/12/21 10:15 Dose: 40 mg Documented by: Pravastatin Sodium (Pravastatin 80 Mg Tab) 80 mg PO QHS [facility] Last Admin: 05/11/21 22:27 Dose: Not Given Documented by: Quetiapine Fumarate (Quetiapine 25 Mg Tab) 12.5 mg PO DAILY [facility] Last Admin: 05/12/21 10:13 Dose: 12.5 mg Documented by: Sodium Chloride (Sodium Chloride 0.9% 10 Ml Flush Syringe) 10 ml IV BID [facility] Last Admin: 05/12/21 10:13 Dose: 10 ml Documented by: Sodium Chloride (Sodium Chloride 0.9% 10 Ml Flush Syringe) 10 ml IV PRN PRN PRN Reason: LINE FLUSH Trazodone HCl (Trazodone 50 Mg Tab) 50 mg PO QHS [facility] Last Admin: 05/11/21 22:27 Dose: Not Given Documented by: Review of Systems ROS unobtainable: due to mental status Exam - Constitutional Vitals: Temp Pulse Resp BP Pulse Ox 97.5 F L 58 L 18 115/55 94 05/12/21 07:34 05/12/21 07:46 05/12/21 07:46 05/12/21 07:34 05/12/21 07:34 General appearance: Present: no acute distress, other (Not able to give coherent responses) - EENT Eyes: Present: PERRL, EOM intact ENT: hearing intact - Respiratory Respiratory effort: normal Respiratory: bilateral: CTA (anteriorly) - Cardiovascular Rhythm: regular Heart Sounds: Present: S1 & S2 - Extremities Extremities: No edema - Abdominal General gastrointestinal: Present: soft, non-tender - Rectal Rectal Exam: normal rectal tone, other (No masses, no oziel blood on rectal) Results - Labs CBC & Chem 7: 05/12/21 04:01 05/12/21 04:01 Labs: Abnormal lab results 05/11/21 05/11/21 05/12/21 Range/Units 16:06 22:53 04:01 WBC 13.9 H (4.5-11.0) K/mm3 RDW 17.4 H (13.2-15.2) % Lymph % (Auto) 12.2 L (13.4-35.0) % Seg Neutrophils % 79.3 H (40.0-70.0) % Seg Neutrophils # 11.0 H (1.8-7.7) K/mm3 Sodium (137-145) mmol/L BUN (9-20) mg/dL Glucose (75-100) mg/dL POC Glucose 218 H (70-105) mg/dL Urine WBC (Auto) 55.0 H (0.0-6.0) /HPF 05/12/21 Range/Units 04:01 WBC (4.5-11.0) K/mm3 RDW (13.2-15.2) % Lymph % (Auto) (13.4-35.0) % Seg Neutrophils % (40.0-70.0) % Seg Neutrophils # (1.8-7.7) K/mm3 Sodium 134 L (137-145) mmol/L BUN 48 H (9-20) mg/dL Glucose 202 H (75-100) mg/dL POC Glucose (70-105) mg/dL Urine WBC (Auto) (0.0-6.0) /HPF Assessment and Plan 1. Rectal bleed -resolved. Hemoglobin stable. Per discussion by hospitalist with patient's , aggressive evaluation not desired. As patient has stopped bleeding, we will not pursue colonoscopic evaluation. -I would recommend discontinuation of antiplatelet and anticoagulant agents unless absolutely needed. We will sign off. Thanks.
[2021-05-12 12:56] VITALS: BP 110/58
== END 2021-05-12 15:00 | DRG 871 ==
LOC: ED 08:25 → 4A 12:01
PROVIDERS: ADMIT Internal Medicine; ATTEND Hospitalist
DX: A41.9 Sepsis, unspecified organism (principal); N17.0 Acute kidney failure with tubular necrosis; K92.2 Gastrointestinal hemorrhage, unspecified; N39.0 Urinary tract infection, site not specified; K21.9 Gastro-esophageal reflux disease without esophagitis; E11.9 Type 2 diabetes mellitus without complications; I11.0 Hypertensive heart disease with heart failure; I50.9 Heart failure, unspecified; F32.9 Major depressive disorder, single episode, unspecified; F01.50 Vascular dementia, unspecified severity, without behavioral disturbance, psychotic disturbance, mood disturbance, and anxiety; I67.2 Cerebral atherosclerosis; Z98.49 Cataract extraction status, unspecified eye; Z82.49 Family history of ischemic heart disease and other diseases of the circulatory system; Z83.3 Family history of diabetes mellitus; Z79.899 Other long term (current) drug therapy; Z79.4 Long term (current) use of insulin; Z86.711 Personal history of pulmonary embolism; Z79.01 Long term (current) use of anticoagulants; I69.320 Aphasia following cerebral infarction
CPT/HCPCS: 36415; 74022; 74177; 80048; 80053; 81001; 82962; 85014; 85018; 85025; 85610; 85730; 87086; 87641; 96361; 96365; G0378; A9270-GY; C9113; J0696; J7030; J7040; Q9967